=== PATIENT | female | born 1970 | race Caucasian/White ===

== ENCOUNTER 2019-12-02 18:47 | Emergency (ER) | payer BC, OTHER ==
[~2019-12-02] VITALS: Ht 160 cm; Wt 68.2 kg
[~2019-12-02 18:47] MED LIST: ACET-78 PO; IBUP-2473 PO; L.AC1CAP6 PO
[2019-12-02] MEDS ORDERED: NS IV 1000 ML 1,000 ML IV SCH (19:05)
--- NOTE | 2019-12-02 19:19 | ED Abdominal Pain ---
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 Worse with palpation. Not worse with bowel movements, passing gas, eating. She has no nausea and had a bowel movement earlier today. No fevers or chills cough shortness of breath or recent travel. She has had her gallbladder out and hysterectomy. She had labs obtained at the urgent care including urine which were normal and they were attempting to get a CT set up but could not get authorized. They felt that it was emergent to get a CT scan because there was an abnormal bowel gas pattern on flat plate films so they sent her to the ER. She is on Synthroid and follows with Dr. Cary but otherwise says she is healthy. Patient did receive a prescription for doxycycline and took her first dose about 4 hours prior to arrival. Last time she ate was last night. She had some water about 4 hours ago with her doxycycline tablet. Allergies and Home Medications Allergies Coded Allergies: hydrocodone (Verified Allergy, Intermediate, HIVES, 09/21/15) Home Medications Acetaminophen 500 Mg Tablet, 1,000 MG PO Q6H PRN for MILD PAIN Prescribed by: KATARINA ROSS on 09/29/151626 Ibuprofen 200 Mg Tablet, 400 MG PO Q6H PRN for PAIN Prescribed by: KATARINA ROSS on 09/29/151626 L.acidoph & Paracasei,B.lactis 1 Each Capsule, 1 EACH PO DAILY, (Reported) Patient Home Medication List Home Medication List Reviewed: Yes Review of Systems Review of Systems Constitutional: No chills, No diaphoresis, No fever EENTM: No Blurred Vision, No Double Vision Respiratory: Denies Cough, Denies Shortness of Air Cardiovascular: Denies Chest Pain, Denies Edema Gastrointestinal: See HPI; Denies Abdomen Distended; Abdominal Pain; Denies Constipated, Denies Diarrhea, Denies Nausea; Poor Appetite; Denies Poor Fluid Intake, Denies Vomiting Genitourinary: Denies Burning, Denies Discharge Musculoskeletal: No back pain, No joint pain Skin: No lesions, No lumps All Other Systems Reviewed Negative Unless Noted: Yes Past Kfeimml-Acrkhr-Vatdlm Hx Patient Social History Alcohol Use: Denies Use Recreational Drug Use: No Smoking Status: Never a Smoker Recent Foreign Travel: No Contact w/Someone Who Travel: No Past Medical History Reproductive Disorders: Yes (MONORRHAGIA) Female Reproductive Disorders: Menstrual Problems Sexually Transmitted Disease: No HIV/AIDS: No Loss of Vision: Bilateral Hearing Impairment: Denies Adverse Reaction/Blood Tranf: No Physical Exam Vital Signs Vital Signs - First Documented 12/02/19 18:57 Temp 36.6 Pulse 75 Resp 18 B/P (MAP) 154/101 (118) Pulse Ox 98 O2 Delivery Room Air Capillary Refill : Height/Weight/BMI Height: 5'3.00" Weight: 155lbs. 0.0oz. [id number]; 25.79 BMI Method: General Appearance: WD/WN, mild distress HEENT: PERRL/EOMI, pharynx normal Neck: full range of motion, supple, normal inspection Respiratory: lungs clear, normal breath sounds, no respiratory distress, no accessory muscle use Cardiovascular: normal peripheral pulses, regular rate, rhythm, no edema Peripheral Pulses: 2+ Dorsalis Pedis (R), 2+ Left Dors-Pedis (L) Gastrointestinal: normal bowel sounds, soft, no organomegaly, rebound, tenderness (right lower quadrant around McBurney's point with rebound tenderness, right-sided psoas sign and Rovsing sign positive.) Neurologic/Psychiatric: alert, normal mood/affect, oriented x 3 Skin: normal color, warm/dry Progress/Results/Core Measures Results/Orders My Orders Orders - ALAINA YPI Ed Iv/Invasive Line Start (12/02/19 19:05) Ns Iv 1000 Ml (Sodium Chloride 0.9%) (12/02/19 19:05) Blood Culture (12/02/19 19:05) Ct Abdomen/Pelvis W (12/02/19 19:05) Iohexol Injection (Omnipaque 350 Mg/Ml 1 (12/02/19 19:30) Received Contrast (Hold Metformin- Contr (12/02/19 19:30) Ns (Ivpb) (Sodium Chloride 0.9% Ivpb Bag (12/02/19 19:30) Medications Given in ED Current Medications Medications Dose Ordered Sig/Yared Route Start Time Stop Time Status Last Admin Dose Admin Iohexol 85 ml ONCE ONCE IV 12/02/19 19:30 12/02/19 19:31 DC 12/02/19 19:42 85 ML Sodium Chloride 100 ml ONCE ONCE IV 12/02/19 19:30 12/02/19 19:31 DC 12/02/19 19:42 100 ML Vital Signs/I&O 12/02/19 18:57 Temp 36.6 Pulse 75 Resp 18 B/P (MAP) 154/101 (118) Pulse Ox 98 O2 Delivery Room Air Progress Progress Note : Time: 19:45 Progress Note Appendicitis, obstipation/obstruction? Gynecologic? Labs and urine from urgent care were reviewed and are as follows: Urinalysis negative for bilirubin, blood, glucose, ketones, leukocyte esterase, nitrite, protein or urobilinogen. PH 6.5. Specific gravity 1.005 Sodium 135 Potassium 3.6 Chloride 102 CO2 27 Gap 10 Glucose 75 Creatinine 0.6 GFR 112. BUN 10 Calcium 8.7 Alkaline phosphatase 32 AST 23 ALT 18 Total bilirubin 0.6 Albumin 4.1 Total protein 6.5 Globulin 2.4 Osmolality 268 Amylase 26 Lipase 33 White count 5.73 RBC 4.46 Hemoglobin 14.8 Hematocrit 43.1 MCV 96.6 Platelets 257,000 Neutrophil percent 54.9% Lymphocytes 35.4% C-reactive protein is undetectable 0.00 Plan: Give her a liter of fluids and obtain blood cultures as well as a CT of the abdomen and pelvis with IV contrast. Diagnostic Imaging Diagonstic Imaging: CT (with IV contrast) Plain Films/CT/US/NM/MRI: abdomen, pelvis Comments Normal appendix seen. Gallbladder surgically missing. Uterus surgically missing. No ovarian cyst. Slight thickening of the duodenum owing either to inflammation versus empty appearance. [facility] [place] NAME: VIVEK MERAZ [facility] REC#: [id number] PT STATUS: REG ER : 1970 PHYSICIAN: ALAINA YIP MD ADMIT DATE: 12/02/19/ER Signed Date of Exam:12/02/19 CT ABDOMEN/PELVIS W PROCEDURE: CT abdomen and pelvis with contrast. TECHNIQUE: Multiple contiguous axial images were obtained through the abdomen and pelvis after administration of intravenous contrast. Auto Exposure Controls were utilized during the CT exam to meet ALARA standards for radiation dose reduction. INDICATION: Right lower abdominal pain for 2 days. Diarrhea. COMPARISON is made with a study from 10/16/2015. The gallbladder is absent. The liver and bile ducts are normal. The spleen, pancreas and adrenals are normal. The kidneys, ureters and bladder are normal. The appendix is normal. No acute bowel abnormality is seen. There is no adnexal abnormality. There is no ascites. There is no bony abnormality. IMPRESSION: No acute abnormality is seen. Dictated by: Dictated on workstation # [id number] Dict: 12/02/191999 Trans: 12/02/192011 [facility] [id number] Interpreted by: GARETH JAMES MD Electronically signed by: GARETH JAMES MD 12/02/192011 Reviewed: Reviewed by Me Departure Impression Primary Impression: Acute duodenitis Disposition: HOME, SELF-CARE Condition: Stable Departure-Patient Inst. Decision time for Depature: 20:40 Referrals: BRENDA CARY MD (PCP/Family) Primary Care Physician Patient Instructions: Acute Abdomen (Belly Pain), Adult (DC) Add. Discharge Instructions: While we cannot specifically say what is causing your abdominal pain I suspect you may have a viral infection of the small intestine versus other inflammatory disease perhaps caused by allergies or other autoimmune disease. Typically viruses will last 3-5 days and go away on their own. You should stay hydrated by drinking sports drinks, water and sticking to a bland diet. Bananas, rice, applesauce, toast etc. If your symptoms persist beyond 12/04/19 then you should call your primary care office and request follow-up appointment. You should discuss further workup possibly including endoscopy or a referral to a specialist. If your symptoms worsen beyond what Tylenol helps or you develop a fever or other worrisome symptoms then please return to the ER for reexamination. Omeprazole 40 mg daily for the next 1-2 weeks to help reduce discomfort. Tylenol 1000 mg every 8 hours as necessary for pain. You may try Tums, Rolaids, Mylanta etc. Ondansetron one tablet under the tongue every 6 hours as necessary for nausea. All discharge instructions reviewed with patient and/or family. Voiced understanding. Scripts Omeprazole (Omeprazole) 40 Mg Capsule.dr 40 MG PO DAILY for 14 Days, #14 CAP 0 Refills Prov: ALAINA YIP 12/02/19 Ondansetron (Ondansetron Odt) 4 Mg Tab.rapdis 4 MG PO Q6H PRN for NAUSEA/VOMITING, #8 TAB 0 Refills Prov: ALAINA YIP 12/02/19 ALAINA YIP Dec 02, 2019 19:19
[2019-12-02] MEDS ORDERED: NS 100 ML (IVPB) BAG IV ONE (19:30)
[2019-12-02] MEDS ORDERED: HOLD METFORMIN - RECEIVED CONTRAST 20 ML VIAL IV SCH (19:30)
[2019-12-02] MEDS ORDERED: IOHEXOL 350 MG/ML 100 ML (OMNIPAQUE 350) VIAL IV ONE (19:30)
--- NOTE | 2019-12-02 20:08 | Diagnostic Imaging Report ---
PROCEDURE: CT abdomen and pelvis with contrast. TECHNIQUE: Multiple contiguous axial images were obtained through the abdomen and pelvis after administration of intravenous contrast. Auto Exposure Controls were utilized during the CT exam to meet ALARA standards for radiation dose reduction. INDICATION: Right lower abdominal pain for 2 days. Diarrhea. COMPARISON is made with a study from 10/16/2015. The gallbladder is absent. The liver and bile ducts are normal. The spleen, pancreas and adrenals are normal. The kidneys, ureters and bladder are normal. The appendix is normal. No acute bowel abnormality is seen. There is no adnexal abnormality. There is no ascites. There is no bony abnormality. IMPRESSION: No acute abnormality is seen. Dictated by: Dictated on workstation # [id number]
[2019-12-02] MEDS ORDERED: ONDA4TAB11 PO (20:45)
[2019-12-02] MEDS ORDERED: OMEP40CA27 PO (20:45)
[2019-12-02 21:09] VITALS: BP 115/58
== END 2019-12-02 21:08 | disposition home or self-care (01) ==
LOC: EDUNIT# 18:47 → ER 18:48
DX: K29.80 Duodenitis without bleeding (principal); Z88.5 Allergy status to narcotic agent
CPT/HCPCS: 74177; 87040

== ENCOUNTER → 2019-12-23 | Outpatient (CLI) | payer OTHER ==
[~2019-12-23] MED LIST changes: +OMEP40CA27 PO; +ONDA4TAB11 PO
== END ==
LOC: LABNPT 09:30
PROVIDERS: ATTEND Internal Medicine Gastroenterology
DX: R79.9 Abnormal finding of blood chemistry, unspecified (principal); Z20.828 Contact with and (suspected) exposure to other viral communicable diseases
CPT/HCPCS: 87635

== ENCOUNTER → 2020-01-17 | Outpatient (CLI) | payer OTHER ==
--- NOTE | 2020-01-17 14:33 | Diagnostic Imaging Report ---
PROCEDURE: US Non-ob pelvis comp/trans. TECHNIQUE: Multiple real-time grayscale images were obtained of the pelvis in various projections endovaginally. Transabdominal imaging was also performed. INDICATION: Right lower quadrant pain, hysterectomy. FINDINGS: The previous pelvic ultrasound exam of 10/15/2015 noted postoperative changes consistent with a prior hysterectomy. The right ovary was not visualized. The left ovary was unremarkable. There did appear to be a small amount of complex fluid within the cul-de-sac. On this exam, both ovaries are identified. There is a 1.7 x 1.5 x 1.7 cm cyst associated with the right ovary. This cyst does contain a septation and a few internal echoes and I suspect it is slightly complicated by infection and/or hemorrhage. The left ovary is unremarkable. There is no solid pelvic mass or free fluid collection evident. As noted on the prior study, the uterus is surgically absent. IMPRESSION: 1. There is a septated, slightly complicated 1.7 x 1.5 x 1.7 cm cyst associated with the right ovary. There is no acute pelvic abnormality noted otherwise. 2. The uterus is surgically absent. Dictated by: Dictated on workstation # [id number]
== END ==
LOC: RAD 12:01
PROVIDERS: ATTEND Nurse Practitioner Family
DX: N83.201 Unspecified ovarian cyst, right side (principal); R10.31 Right lower quadrant pain; Z90.710 Acquired absence of both cervix and uterus
CPT/HCPCS: 76830; 76856

== ENCOUNTER → 2020-01-20 | Outpatient (CLI) | payer OTHER ==
[~2020-01-20] MED LIST changes: +BARIUM for suspension 96% w/w (Vanilla Silq Medium Density) PO ONE; +BARIUM for suspension 98% w/w (Vanilla Silq High Density) PO ONE
--- NOTE | 2020-01-20 09:16 | Diagnostic Imaging Report ---
INDICATION: Abdominal pain and bloating. The patient ingested effervescent crystals as well as thin and thick barium and imaging of the esophagus, stomach and small bowel was performed. A total of 40 seconds of fluoroscopic time was utilized. Preliminary radiograph of the abdomen demonstrates unremarkable bowel gas pattern. There are surgical clips in the right upper quadrant and pelvis. Postingestion films demonstrate a smooth contour to the esophagus. No mass or stricture is identified. No definite hiatal hernia or gastroesophageal reflux was demonstrated. The stomach has normal configuration. There is prompt emptying into the small bowel. The duodenal bulb is without deformity. Proximal small bowel loops are unremarkable. IMPRESSION: Unremarkable upper GI. Dictated by: Dictated on workstation # [id number]
--- NOTE | 2020-01-20 09:28 | Diagnostic Imaging Report ---
INDICATION: Abdominal pain and distention. TECHNIQUE: Serial radiographs of the abdomen were obtained after the patient ingested thin and thick barium. FINDINGS: The stomach is unremarkable. The small bowel loops are of normal caliber. The mucosal fold pattern is unremarkable. There is normal small bowel transit noted. No bowel obstruction is seen. The terminal ileum is unremarkable. IMPRESSION: Unremarkable small bowel study. Dictated by: Dictated on workstation # [id number]
== END ==
LOC: RAD 07:31
PROVIDERS: ATTEND Internal Medicine Gastroenterology
DX: R10.9 Unspecified abdominal pain (principal); R14.0 Abdominal distension (gaseous); R68.81 Early satiety
CPT/HCPCS: 74246; 74248

== ENCOUNTER 2020-02-07 12:43 | Outpatient (CLI) | payer OTHER ==
[~2020-02-07] VITALS: Ht 160 cm; Wt 72.7 kg
[~2020-02-07 12:43] MED LIST changes: -BARIUM for suspension 96% w/w (Vanilla Silq Medium Density) PO ONE; -BARIUM for suspension 98% w/w (Vanilla Silq High Density) PO ONE; +LEVO25TA2 PO
== END 2020-02-07 12:44 | disposition home or self-care (01) ==
LOC: PREOP 12:43
PROVIDERS: ATTEND Surgery
DX: Z01.818 Encounter for other preprocedural examination (principal)

== ENCOUNTER 2020-02-13 08:52 | Day surgery (SDC) | payer OTHER ==
[2020-02-13] VITALS (11 sets, daily range): BP systolic 104–156; BP diastolic 63–94
[~2020-02-13] VITALS: Ht 160 cm; Wt 72.7 kg
[2020-02-13] MEDS ORDERED: ceFAZolin 2 GM IV Premixed 50 ML IV ONE (09:00)
[2020-02-13] MEDS ORDERED: ceFAZolin 2 GM IV Premixed 50 ML ONE (09:11)
[2020-02-13] MEDS ORDERED: SCOPOLAMINE 1.5 MG (TRANSDERM-SCOP) PATCH ONE (09:12)
--- NOTE | 2020-02-13 09:14 | Progress Note-Pre Operative ---
Pre-Operative Progress Note H&P Reviewed The H&P was reviewed, patient examined and no changes noted. Date Seen by Provider: Feb 13, 2020 Time Seen by Provider: 09:10 Date H&P Reviewed: Feb 13, 2020 Time H&P Reviewed: 09:05 Pre-Operative Diagnosis: Right lower abdominal quadrant pain EVELIO THOMAS APRN Feb 13, 2020 09:14
[2020-02-13] MEDS ORDERED: ONDANSETRON 4 MG/2 ML (SDV) Z0FRAN IVP PRN ×2 (09:15→13:45)
[2020-02-13] MEDS ORDERED: fentaNYL INJECTION 100 MCG/2 ML AMP IVP PRN (09:15)
[2020-02-13] MEDS ORDERED: ACETAMINOPHEN 325 MG TABLET PO PRN (09:15)
[2020-02-13] MEDS ORDERED: KETO10TA PO (09:16)
[2020-02-13] MEDS ORDERED: BUP/EPI 0.5% 1:200,000 (MARCAINE) 10ML VIAL IJ ONE ×2 (09:17→09:39)
--- NOTE | 2020-02-13 09:17 | Discharge Inst-Surgical ---
D/C Lap Instructions-KIDO Reconcile Patient Problems Problems Reviewed?: Yes New, Converted, or Re-Newed RX: RX on Chart Follow Up Appt in 2 weeks Activity as tolerated No driving for 24 hours No driving while on pain medications Incentive Spirometry use every 2 hours while awake Regular Diet Symptoms to Report: Fever over 101 degree F, Nausea/Vomiting Infection Signs and Symptoms to report: Increased redness, Foul odor of wound, Increased drainage Bathing instructions: May shower Operative Area Clean/Dry; Keep incision clean/dry If any problems/questions: Contact your physician or go to Emergency Room EVELIO THOMAS APRN Feb 13, 2020 09:16
[2020-02-13] MEDS ORDERED: ONDANSETRON 4 MG/2 ML (SDV) Z0FRAN ONE ×2 (09:23→12:11)
[2020-02-13] MEDS: LACTATED RINGERS 1,000 ML IV PRN ×2 (09:25→13:09)
[2020-02-13] MEDS ORDERED: FAMOTIDINE 20MG/2ML IV (PEPCID) ONE ×2 (09:25→09:26)
[2020-02-13] MEDS ORDERED: ONDANSETRON 4 MG/2 ML (SDV) Z0FRAN IV ONE (09:30)
[2020-02-13] MEDS ORDERED: SCOPOLAMINE 1.5 MG (TRANSDERM-SCOP) PATCH TOP ONE (09:30)
[2020-02-13] MEDS ORDERED: FAMOTIDINE 20MG/2ML IV (PEPCID) IV ONE (09:30)
[2020-02-13 09:46] LABS: BASOPHILS % (AUTO) 1 % (0-10); EOSINOPHILS # (AUTO) 0.1 10^3/uL (0.0-0.3); EOSINOPHILS % (AUTO) 3 % (0-10); HEMATOCRIT 40 % (35-52); HEMOGLOBIN 13.4 G/DL (11.5-16.0); LYMPHOCYTES # (AUTO) 1.5 X 10^3 (1.0-4.0); LYMPHOCYTES % (AUTO) 35 % (12-44); MEAN CORPUSCULAR HEMOGLOBIN 32 PG (25-34); MEAN CORPUSCULAR HGB CONC 34 G/DL (32-36); MEAN CORPUSCULAR VOLUME 95 FL (80-99); MEAN PLATELET VOLUME 10.8 FL (7.4-10.4); MONOCYTES # (AUTO) 0.4 X 10^3 (0.0-1.0); MONOCYTES % (AUTO) 10 % (0-12); NEUTROPHILS # (AUTO) 2.2 X 10^3 (1.8-7.8); NEUTROPHILS % (AUTO) 53 % (42-75); PLATELET COUNT 228 10^3/uL (130-400); RED CELL DISTRIBUTION WIDTH 11.8 % (10.0-14.5); WHITE BLOOD COUNT 4.2 10^3/uL (4.3-11.0)
[2020-02-13] MEDS ORDERED: ROCURONIUM 10 MG/ML 5 ML SYRINGE IV ONE (12:11)
[2020-02-13] MEDS ORDERED: proPOfol 200 MG/20 ML (DIPRIVAN) VIAL IV ONE (12:11)
[2020-02-13] MEDS ORDERED: MIDAZOLAM 2 MG/2 ML (VERSED) VIAL ONE (12:11)
[2020-02-13] MEDS ORDERED: LIDOCAINE PF 2% 5 ML (XYLOCAINE) VIAL ONE (12:11)
[2020-02-13] MEDS ORDERED: fentaNYL INJECTION 100 MCG/2 ML AMP ONE (12:11)
[2020-02-13] MEDS ORDERED: NEOSTIGMINE 3 MG/3 ML VIAL ONE (12:12)
[2020-02-13] MEDS ORDERED: SEVOFLURANE (ULTANE) 15 ML INHAL SOLN ONE ×4 (12:12→12:34)
[2020-02-13] MEDS ORDERED: GLYCOPYRROLATE 0.2 MG/ML (ROBINUL) 2 ML VIAL ONE ×2 (12:12→13:00)
[2020-02-13] MEDS ORDERED: HYDROmorphone 2 MG/ML VIAL (DILAUDID) ONE (13:23)
--- NOTE | 2020-02-13 13:38 | Progress Note-Post Operative ---
Post-Operative Progess Note Surgeon (s)/South Asian History Professor (s) Surgeon IRMA KENNEDY MD South Asian History Professor: maura chavez INDUSTRIAL ENGINEER Pre-Operative Diagnosis Right lower abdominal quadrant pain Post-Operative Diagnosis right hemorrhagic ovarian cyst. Procedure & Operative Findings Date of Procedure 02/13/20 Procedure Performed/Findings diagnostic laparoscopy. right oophorectomy. appendectomy. Anesthesia Type get Estimated Blood Loss Estimated blood loss (mL): minimal Specimens/Packing Specimens Removed appendix. right ovary IRMA KENNEDY MD Feb 13, 2020 13:38
[2020-02-13] MEDS ORDERED: morphine INJ 10 MG/ML 1ML (SYR OR VIAL) IVP ONE (13:45)
[2020-02-13] MEDS ORDERED: HYDROmorphone 2 MG/ML VIAL (DILAUDID) IV ONE (13:45)
[2020-02-13] MEDS ORDERED: ONDANSETRON 4 MG (ZOFRAN) ORAL DISSOLVE TAB ONE (15:34)
--- NOTE | 2020-02-13 15:40 | NUR ---
PT UP TO BR TO VOID, EMESIS IN STOOL OF SMALL AMOUNT MUCUS LIKE SUBSTANCE, PO ZOFRAN GIVEN. COOL CLOTH TO NECK
[2020-02-13] MEDS ORDERED: ONDANSETRON 4 MG (ZOFRAN) ORAL DISSOLVE TAB PO ONE (15:45)
--- NOTE | 2020-02-13 16:25 | NUR ---
1640 PT FEELS MUCH BETTER, STATES PAIN MED HAS HELPED.
--- NOTE | 2020-02-13 22:14 | OPERATIVE REPORT ---
DATE OF SERVICE: 02/13/2020 ATTENDING PRIMARY CARE PHYSICIAN: Wandy Cary MD PREOPERATIVE DIAGNOSIS: Persistent right lower abdominal quadrant pain. POSTOPERATIVE DIAGNOSIS: Right ovarian hemorrhagic cyst. PROCEDURE: Diagnostic laparoscopy, right salpingo-oophorectomy, appendectomy. SURGEON: Irma Kennedy MD STRAP MACHINE OPERATOR AUTOMATIC: Oniel Rangel APRN. ANESTHESIA: General endotracheal. ESTIMATED BLOOD LOSS: Minimal. FINDINGS: Same as postoperative diagnosis. DISPOSITION: The patient tolerated the procedure well. INDICATIONS: The patient is a 49-year-old female who has had several month history of pain in the right lower abdominal quadrant. She states that this has been occurring for approximately the past three to six months and if relatively constant; however, it is worse on Sundays versus others. She has undergone further workup and was seen by endoscopy and underwent a colonoscopy, which was normal. She also is status post a laparoscopic hysterectomy and she was eventually referred to [facility], where a CT scan was performed, which did show an ovarian cyst; however, they felt that this was not the cause of the pain and recommended medical management. As time progressed, she states that the pain was continued and did interfere with her everyday life functioning. She reports that with the pain she also does have some mild nausea; however, no vomiting. DESCRIPTION OF PROCEDURE: The patient was brought to the operating room, laid supine on the table. After adequate IV pain and stated medications and general endotracheal intubation, the abdomen was prepped and draped in standard surgical fashion. A 0.5% Marcaine with epinephrine was used to anesthetize overlying skin in the left upper abdominal quadrant and a transverse skin incision made using a 15 blade. An 0 silk suture was applied to the medial aspect incision for retraction and a Veress needle inserted with a low opening pressure of 0 mmHg and the abdomen was then insufflated to 15 mmHg pressure. The Veress needle removed and a 5 mm XL trocar placed followed by a 5 mm 45-degree angle laparoscope visualizing the peritoneal cavity. A 4-quadrant abdominal exploration was performed. A right hemorrhagic cyst was identified. The left ovary appeared normal. The appendix appeared normal as well. There was no Meckel's diverticulum. No gastrointestinal or mesenteric inflammation. Under direct visualization, we then proceeded to place a supraumbilical 10 mm port after the skin and peritoneal lining were anesthetized using 0.5% Marcaine with epinephrine and a vertical skin incision made using a 15 blade. In a similar manner, a right upper abdominal quadrant 5 mm port was placed. The patient was then placed in Trendelenburg position. We will proceed with the salpingo-oophorectomy by retracting the ovary anteriorly and medially. The ureter was identified and spared throughout the process. We then proceeded with dissection of the infundibulum tendon using the Sonicision. The round ligament also identified and dissected using a Sonicision with visualization of good hemostasis. We continued with this process inferiorly into the ovary and tube was completely freed with visualization of good hemostasis. We then proceeded with appendectomy and a window was created between the base of the appendix and the mesoappendix using a [place] dissector. The mesoappendix and the base of the appendix were then stapled and transected with a SHELBI 2.5 mm thickness stapler with visualization of good hemostasis. The ovary and appendix were then removed through the 10 mm port site using an EndoCatch bag. The two areas were then copiously irrigated and suctioned out with visualization of good hemostasis. The 10 mm port site fascia and peritoneum were then closed under direct visualization using a Richard-Haresh device and 0 Vicryl suture. The abdomen was desufflated and remaining ports removed. All skin incisions were closed using 4-0 Monocryl running subcuticular sutures. Wounds were then cleaned and covered with Dermabond. The patient tolerated the procedure well. We will start IV normal pain medication as a clear liquid diet. Once she is tolerating clears, has good pain control with oral pain medications, ambulating well, we will discharge her home. Job ID: [id number] DocumentID: [id number] Dictated Date: 02/13/2020 13:52:49 Exhibit Display Representative Date: 02/13/2020 22:13:35 Dictated By: IRMA KENNEDY MD
--- NOTE | 2020-02-17 14:31 | Anesthesia-General Post-Op ---
General Post Op Complications Complications None Follow Up Care/Instructions Patient Instructions None needed. Anesthesia/Patient Condition Patient Condition Post-dated progress note: Patient was seen on 02-13-2020 at approximately 1430. She was doing well, no complaints, stable vital signs, no apparent adverse anesthesia problems. PADMINI GURROLA DO Feb 17, 2020 14:31
== END 2020-02-13 16:05 | disposition home or self-care (01) ==
LOC: SDC 08:52
PROVIDERS: ATTEND Surgery
DX: N83.11 Corpus luteum cyst of right ovary (principal); E03.9 Hypothyroidism, unspecified; K44.9 Diaphragmatic hernia without obstruction or gangrene; Z79.899 Other long term (current) drug therapy; Z88.5 Allergy status to narcotic agent; Z90.711 Acquired absence of uterus with remaining cervical stump; Z83.3 Family history of diabetes mellitus; Z82.49 Family history of ischemic heart disease and other diseases of the circulatory system
CPT/HCPCS: 36415; 85025; 87081

== ENCOUNTER 2022-05-08 00:26 | Emergency (ER) | payer OTHER ==
[~2022-05-08 00:26] MED LIST changes: +KETO10TA PO; -OMEP40CA27 PO; +OMEP40CA6 PO
[2022-05-08] MEDS ORDERED: ONDANSETRON 4 MG/2 ML (SDV) Z0FRAN IVP ONE (00:45)
[2022-05-08] MEDS ORDERED: LACTATED RINGERS 1,000 ML IV ONE (00:45)
[2022-05-08 00:52] VITALS: BP_SYST 110; BP_SYST 119; BP_SYST 121; BP_DIAS 66; BP_DIAS 82
[2022-05-08 02:14] LABS: BILIRUBIN,URINE NEGATIVE (NEGATIVE); CLARITY,URINE CLEAR; COLOR,URINE YELLOW; GLUCOSE, URINE (UA) NEGATIVE (NEGATIVE); KETONES,URINE NEGATIVE (NEGATIVE); LEUKOCYTE ESTERASE ,URINE NEGATIVE (NEGATIVE); NITRITE,URINE NEGATIVE (NEGATIVE); PH,URINE 5.5 (5-9); PROTEIN,URINE NEGATIVE (NEGATIVE)
[2022-05-08 02:15] LABS: BASOPHILS % (AUTO) 0 % (0-10); EOSINOPHILS % (AUTO) 1 % (0-10); HEMATOCRIT 40 % (35-52); HEMOGLOBIN 13.9 g/dL (11.5-16.0); LYMPHOCYTES # (AUTO) 1.6 10^3/uL (1.0-4.0); LYMPHOCYTES % (AUTO) 41 % (12-44); MEAN CORPUSCULAR HEMOGLOBIN 32 pg (25-34); MEAN CORPUSCULAR HGB CONC 35 g/dL (32-36); MEAN CORPUSCULAR VOLUME 92 fL (80-99); MEAN PLATELET VOLUME 10.2 fL (9.0-12.2); MONOCYTES # (AUTO) 0.4 10^3/uL (0.0-1.0); MONOCYTES % (AUTO) 11 % (0-12); NEUTROPHILS # (AUTO) 1.8 10^3/uL (1.8-7.8); NEUTROPHILS % (AUTO) 47 % (42-75); PLATELET COUNT 216 10^3/uL (130-400); WHITE BLOOD COUNT 3.9 10^3/uL (4.3-11.0)
[2022-05-08 02:24] LABS: BACTERIA,URINE NEGATIVE /HPF
[2022-05-08 02:25] LABS: HYALINE CASTS, URINE 0-2 /LPF
[2022-05-08 02:26] LABS: ALBUMIN 4.2 GM/DL (3.2-4.5)
[2022-05-08 02:27] LABS: POTASSIUM 3.3 MMOL/L (3.6-5.0)
[2022-05-08 02:28] LABS: CALCIUM 9.8 MG/DL (8.5-10.1)
[2022-05-08 02:29] LABS: TOTAL PROTEIN 7.3 GM/DL (6.4-8.2)
[2022-05-08 02:31] LABS: BILIRUBIN,TOTAL 0.3 MG/DL (0.1-1.0)
[2022-05-08 02:33] LABS: CREATININE SERUM 0.71 MG/DL (0.60-1.30)
[2022-05-08 02:35] LABS: MAGNESIUM 1.7 MG/DL (1.6-2.4)
--- NOTE | 2022-05-08 02:52 | ED General ---
General Chief Complaint: Dizziness/Syncope Stated Complaint: "PASSED OUT 3 TIMES WHILE AT [facility]" Nursing Triage Note: TO ED VIA [facility] FROM [place] [facility] AM[facility]ULAT[facility] INTO ER FROM AMBULANCE TO ROOM 6. 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 SHE STATES SHE TRIED TO GET UP AGAIN BUT ENDED UP "PASSING OUT". SHE STATES A [facility] EMPLOYEE INFORMED HER THAT SHE "PASSED OUT A TOTAL OF 3 TIMES". C/O NAUSEA ON ARRIVAL TO ER. Source of Information: Patient, EMS Exam Limitations: No Limitations History of Present Illness Date Seen by Provider: May 08, 2022 Time Seen by Provider: 00:27 Initial Comments This 51-year-old woman presents to the emergency room via EMS after having a syncopal episode at [facility]. She denies any chest pain, shortness of breath, or other associated symptoms. She felt lightheaded after standing up. She sat down at that time. When she got back up again, she had a syncopal episode. This reportedly happened 2 or 3 times. She did not have any injuries with her syncopal episodes. She developed nausea in route and vomited with EMS. She denies any prior episodes. She drank some beer with supper at around 1900 but did not become intoxicated. Allergies and Home Medications Allergies Coded Allergies: hydrocodone (Verified Allergy, Intermediate, HIVES, 02/07/20) Patient Home Medication List Home Medication List Reviewed: Yes Ketorolac Tromethamine (Ketorolac Tromethamine) 10 Mg Tablet, 10 MG PO Q6H PRN for PAIN-MODERATE (5-7) Prescribed by: EVELIO THOMAS on 02/13/20 0916 Levothyroxine Sodium (Synthroid) 25 Mcg Tablet, 25 MCG PO DAILY, (Reported) Entered as Reported by: ANGELA ZHONG on 02/07/20 1233 Review of Systems Review of Systems Constitutional: no symptoms reported EENTM: no symptoms reported Respiratory: no symptoms reported Cardiovascular: see HPI Gastrointestinal: see HPI Genitourinary: no symptoms reported Musculoskeletal: no symptoms reported Skin: no symptoms reported Psychiatric/Neurological: See HPI Hematologic/Lymphatic: No Symptoms Reported Immunological/Allergic: no symptoms reported Past Alvlhdw-Cowhwi-Oxjwgh Hx Patient Social History Tobacco Use?: Yes Tobacco type used: Cigars Smoking Status: Current Someday Smoker Substance use?: No Alcohol Use?: Yes Alcohol type: Beer Alcohol Frequency: Couple times a week Immunizations Up To Date Influenza Vaccine Up-to-Date: No; Not Current 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 Seasonal Allergies Seasonal Allergies: Yes Past Medical History Surgeries: Yes (HIATAL HERNIA) Appendectomy, Gallbladder, Hysterectomy, Oophorectomy (Right) Respiratory: No Currently Using CPAP: No Currently Using BIPAP: No Cardiac: No Neurological: No Reproductive Disorders: Yes (MONORRHAGIA) Female Reproductive Disorders: Denies [employer] History: Hysterectomy Sexually Transmitted Disease: No HIV/AIDS: No Genitourinary: No Gastrointestinal: No Musculoskeletal: No Endocrine: Yes Hypothyroidsim HEENT: Yes (GLASSES) Loss of Vision: Denies Hearing Impairment: Denies Cancer: No Psychosocial: No Integumentary: No Blood Disorders: No Adverse Reaction/Blood Tranf: No (N/A) Physical Exam Vital Signs Vital Signs - First Documented Capillary Refill : Less Than 3 Seconds Height, Weight, BMI Height: 5'3.00" Weight: 155lbs. 0.0oz. [id number]; 28.39 BMI Method: General Appearance: No Apparent Distress, WD/WN HEENT: PERRL/EOMI, Normal ENT Inspection Neck: Normal Inspection, Supple; No JVD Respiratory: Lungs Clear, Normal Breath Sounds, No Accessory Muscle Use Cardiovascular: Regular Rate, Rhythm, No Edema, No Murmur Gastrointestinal: Normal Bowel Sounds, Non Tender, Soft Extremity: Normal Inspection, No Pedal Edema Neurologic/Psychiatric: Alert, Oriented x3, No Motor/Sensory Deficits, Normal Mood/Affect, weed burner II-XII Norm as Tested Skin: Normal Color, Warm/Dry Progress/Results/Core Measures Suspected Sepsis SIRS Temperature: Pulse: 74 Respiratory Rate: 16 Laboratory Tests 05/08/22 01:30: White Blood Count 3.9L Blood Pressure 110 /66 Mean: 81 Laboratory Tests 05/08/22 01:30: Creatinine 0.71, Platelet Count 216, Total Bilirubin 0.3 Results/Orders Lab Results Laboratory Tests Test 05/08/22 01:30 Range/Units White Blood Count 3.9 L 4.3-11.0 10^3/uL Red Blood Count 4.34 3.80-5.11 10^6/uL Hemoglobin 13.9 11.5-16.0 g/dL Hematocrit 40 35-52 % Mean Corpuscular Volume 92 80-99 fL Mean Corpuscular Hemoglobin 32 25-34 pg Mean Corpuscular Hemoglobin Concent 35 32-36 g/dL Red Cell Distribution Width 11.4 10.0-14.5 % Platelet Count 216 130-400 10^3/uL Mean Platelet Volume 10.2 9.0-12.2 fL Immature Granulocyte % (Auto) 0 % Neutrophils (%) (Auto) 47 42-75 % Lymphocytes (%) (Auto) 41 12-44 % Monocytes (%) (Auto) 11 0-12 % Eosinophils (%) (Auto) 1 0-10 % Basophils (%) (Auto) 0 0-10 % Neutrophils # (Auto) 1.8 1.8-7.8 10^3/uL Lymphocytes # (Auto) 1.6 1.0-4.0 10^3/uL Monocytes # (Auto) 0.4 0.0-1.0 10^3/uL Eosinophils # (Auto) 0.0 0.0-0.3 10^3/uL Basophils # (Auto) 0.0 0.0-0.1 10^3/uL Immature Granulocyte # (Auto) 0.0 0.0-0.1 10^3/uL Urine Color YELLOW Urine Clarity CLEAR Urine pH 5.5 5-9 Urine Specific [place] 1.020 1.016-1.022 Urine Protein NEGATIVE NEGATIVE Urine Glucose (UA) NEGATIVE NEGATIVE Urine Ketones NEGATIVE NEGATIVE Urine Nitrite NEGATIVE NEGATIVE Urine Bilirubin NEGATIVE NEGATIVE Urine Urobilinogen 0.2 < = 1.0 MG/DL Urine Leukocyte Esterase NEGATIVE NEGATIVE Urine RBC (Auto) NEGATIVE NEGATIVE Urine RBC NONE /HPF Urine WBC NONE /HPF Urine Crystals NONE /LPF Urine Bacteria NEGATIVE /HPF Urine Casts PRESENT /LPF Urine Hyaline Casts 0-2 H /LPF Urine Mucus SMALL H /LPF Urine Culture Indicated NO Sodium Level 140 135-145 MMOL/L Potassium Level 3.3 L 3.6-5.0 MMOL/L Chloride Level 102 98-107 MMOL/L Carbon Dioxide Level 23 21-32 MMOL/L Anion Gap 15 H 5-14 MMOL/L Blood Urea Nitrogen 4 L 7-18 MG/DL Creatinine 0.71 0.60-1.30 MG/DL Estimat Glomerular Filtration Rate 104 BUN/Creatinine Ratio 6 Glucose Level 108 H 70-105 MG/DL Calcium Level 9.8 8.5-10.1 MG/DL Corrected Calcium 9.6 8.5-10.1 MG/DL Magnesium Level 1.7 1.6-2.4 MG/DL Total Bilirubin 0.3 0.1-1.0 MG/DL Aspartate Amino Transf (AST/SGOT) 69 H 5-34 U/L Alanine Aminotransferase (ALT/SGPT) 57 H 0-55 U/L Alkaline Phosphatase 64 40-136 U/L Total Protein 7.3 6.4-8.2 GM/DL Albumin 4.2 3.2-4.5 GM/DL Serum Alcohol 10 <10 MG/DL My Orders Orders - FELECIA DAUGHERTY MD Alcohol (05/08/22 00:39) Cbc With Automated Diff (05/08/22 00:39) Comprehensive Metabolic Panel (05/08/22 00:39) Magnesium (05/08/22 00:39) Ua Culture If Indicated (05/08/22 00:39) Ed Iv/Invasive Line Start (05/08/22 00:39) Ekg Tracing (05/08/22 00:39) Monitor-Rhythm Ecg Trace Only (05/08/22 00:39) Orthostatic Vital Signs (Adult (05/08/22 00:39) Lactated Ringers (Lr 1000 Ml Iv Solution (05/08/22 00:45) Ondansetron Injection (Zofran Injectio (05/08/22 00:45) Medications Given in ED Current Medications Medications Dose Ordered Sig/Yared Route Start Time Stop Time Status Last Admin Dose Admin Lactated Ringer's 1,000 ml @ 0 mls/hr Q0M ONCE IV 05/08/22 00:45 05/08/22 00:46 DC 05/08/22 01:31 999 MLS/HR Ondansetron HCl 4 mg ONCE ONCE IVP 05/08/22 00:45 05/08/22 00:46 DC 05/08/22 01:31 4 MG Vital Signs/I&O 05/08/22 05/08/22 05/08/22 05/08/22 00:26 00:26 00:52 02:57 Temp 37.0 37.0 Pulse 80 74 76 75 74 Resp 16 16 B/P (MAP) 129/91 (104) 121/82 (95) 115/74 119/82 (94) 110/66 (81) Pulse Ox 99 97 O2 Delivery Room Air Room Air Room Air Capillary Refill : Less Than 3 Seconds Blood Pressure Mean: 81 Progress Note : Progress Note Work-up was unremarkable and patient was feeling improved. She received a liter of IV fluid. Zofran was given for nausea. She was discharged in improved condition. See discharge instructions for further discussion. ECG Initial ECG Impression Date: May 08, 2022 Initial ECG Impression Time: 00:47 Initial ECG Rate: 75 Initial ECG Rhythm: Normal Sinus Initial ECG Intervals: Normal Initial ECG Impression: Normal Comment Normal sinus rhythm with no ST elevation or depression. No abnormal intervals or axis deviation. Departure Impression Primary Impression: Syncope Qualified Codes: R55 - Syncope and collapse Additional Impression: Nausea & vomiting Qualified Codes: R11.2 - Nausea with vomiting, unspecified Disposition: 01 HOME, SELF-CARE Condition: Improved Departure-Patient Inst. Decision time for Depature: 02:48 Referrals: BRENDA SANCHEZ MD (PCP/Family) Primary Care Physician Patient Instructions: Syncope (Fainting) Add. Discharge Instructions: Drink plenty of clear liquids to stay well-hydrated. Start with a clear liquid diet and gradually advance her diet with small quantities of bland food as tolerated. Follow-up with Dr. Martinez soon as possible. You should follow-up regarding your syncopal episode as well as the mild abnormalities on your labs. You had a minimal elevation in your liver enzymes which should be checked again sometime in the near future by your primary care doctor. Return to care if you have recurrent episodes of lightheadedness or syncope. Return to care if you have other worsening symptoms. All discharge instructions reviewed with patient and/or family. Voiced understanding. Copy Copies To 1: BRENDA SANCHEZ MD, JOSHUA T MD May 08, 2022 02:52
[2022-05-08 02:57] VITALS: BP 115/74
== END 2022-05-08 03:07 | disposition home or self-care (01) ==
LOC: EDUNIT# 00:26 → ER 00:27
DX: R55 Syncope and collapse (principal); R11.2 Nausea with vomiting, unspecified; F17.290 Nicotine dependence, other tobacco product, uncomplicated
CPT/HCPCS: 80053; 81000; 83735; 85025; 93005; 93041; 99283; G0480; 36415; 80320